=== PATIENT | female | born 1960 | race Caucasian/White ===

== ENCOUNTER 2022-03-07 15:21 | Emergency (ER) | payer MEDICAID ==
[~2022-03-07] VITALS: Ht 170.2 cm; Wt 50.0 kg
[2022-03-07] MEDS ORDERED: IBUPROFEN 600MG TABLET PO STA (15:57)
[2022-03-07 16:45] LABS: HEMATOCRIT. 36.1 % (36.0-48.0); HEMOGLOBIN. 12.3 g/dL (12.0-16.0); MEAN CORPUSCULAR HEMOGLOBIN 35.1 pg (28.0-32.0); MEAN CORPUSCULAR VOLUME 102.7 fL (81.0-99.0); MEAN PLATELET VOLUME 8.5 fl (7.4-10.4); PLATELET 227 x1000/uL (130-400); RED BLOOD CELL COUNT 3.51 mill/uL (4.2-5.4)
[2022-03-07 16:48] LABS: CHLORIDE 93 mEq/L (98-107)
[2022-03-07] MEDS ORDERED: POTASSIUM CHLORIDE 20MEQ TABLET SR PO ONE (18:15)
[2022-03-07 18:25] LABS: PLATELET ESTIMATE NORMAL
[2022-03-07] MEDS ORDERED: IBUP-2029 MT (20:15)
[2022-03-07] MEDS ORDERED: HYDROCODONE/ACETAMINOPHEN 5/325MG TABLET PO ONE (20:15)
[2022-03-07 20:30] VITALS: BP 122/72
== END 2022-03-07 20:57 | disposition home or self-care (01) ==
LOC: ER 15:21
DX: M79.672 Pain in left foot (principal); M79.671 Pain in right foot; E87.6 Hypokalemia; G62.9 Polyneuropathy, unspecified
CPT/HCPCS: 36415; 73620; 80053; 85025; 99284

== ENCOUNTER 2023-02-14 11:24 | Emergency (ER) | payer MEDICAID, OTHER ==
[~2023-02-14] VITALS: Ht 165.1 cm; Wt 55.0 kg
[~2023-02-14 11:24] MED LIST: IBUP-2029 MT
[2023-02-14 11:28] VITALS: BP 105/67; PULSE 54; RESP 16; TEMP 97.6; O2SAT 98
[2023-02-14 12:49] LABS: BASOPHILS % 1.1 % (0.0-2.0); EOSINOPHILS % 1.9 % (0.0-5.0); HEMATOCRIT. 39.8 % (36.0-48.0); HEMOGLOBIN. 13.5 g/dL (12.0-16.0); LYMPHOCYTES % 34.6 % (20.0-50.0); MEAN CORPUSCULAR HEMOGLOBIN 32.2 pg (28.0-32.0); MEAN CORPUSCULAR VOLUME 95.1 fL (81.0-99.0); MEAN PLATELET VOLUME 7.8 fl (7.4-10.4); MONOCYTES % 5.9 % (2.0-8.0); NEUTROPHILS % 56.5 % (40.0-76.0); PLATELET 411 x1000/uL (130-400); RED BLOOD CELL COUNT 4.19 mill/uL (4.2-5.4)
[2023-02-14 12:56] LABS: PROTHROMBIN TIME 11.2 sec (9.6-11.0)
[2023-02-14 12:57] LABS: CHLORIDE 107 mEq/L (98-107)
[2023-02-14 13:06] LABS: ETHANOL BLOOD 295 mg/dL (-10)
== END 2023-02-15 09:43 | disposition home or self-care (01) ==
LOC: ER 11:24
DX: G92.9 Unspecified toxic encephalopathy (principal)
CPT/HCPCS: 36415; 80053; 80320; 85025; 99284; G0480